=== PATIENT | male | born 1940 | race Caucasian/White ===

== ENCOUNTER 2018-06-10 08:27 | Day surgery (SDC) | payer MEDICARE, OTHER ==
[~2018-06-10 08:27] MED LIST: Lactated Ringers 1,000 ML IV SCH
[2018-06-10] MEDS ORDERED: Propofol 200 MG/20 ML SDV ONE ×3 (09:49→10:05)
[2018-06-10] MEDS ORDERED: fentaNYL 100 MCG/2 ML SDV ONE ×2 (09:49→09:59)
[2018-06-10 11:21] VITALS: BP 140/66
--- NOTE | 2018-06-10 13:45 | OR ---
PREOP DIAGNOSIS: History of colon cancer. POSTOP DIAGNOSIS: History of colon cancer. PROCEDURE PERFORMED: Colonoscopy. INDICATION: The patient is a 77-year-old male, who had a previous colonoscopy approximately 5 years ago, which was normal. History of colon cancer prior to that, presents for repeat colonoscopy at this time. PROCEDURE DETAILS: Procedure done in the endoscopy suite. Sedation was given per Anesthesia. He was placed in left lateral position. First, a rectal exam was done, and was normal. Scope was introduced into the rectum, slowly advanced to the rectum, sigmoid, descending, transverse, and ascending colon until the anastomosis with the terminal ileum was reached. The scope was then slowly withdrawn looking all mucosal surface on the way out. No mucosal abnormalities, lesions, or polyps were noted. FINAL DIAGNOSIS: Normal colonoscopy. BKD: 06/10/2018 11:46:08 MODL: 06/10/2018 13:42:40 /[id number]
== END 2018-06-10 11:45 | disposition home or self-care (01) ==
LOC: VM.SDS 08:27
PROVIDERS: ATTEND Surgery
DX: Z12.11 Encounter for screening for malignant neoplasm of colon (principal); I10 Essential (primary) hypertension; E78.00 Pure hypercholesterolemia, unspecified; Z88.8 Allergy status to other drugs, medicaments and biological substances; Z91.048 Other nonmedicinal substance allergy status; Z79.02 Long term (current) use of antithrombotics/antiplatelets; Z79.82 Long term (current) use of aspirin; Z79.84 Long term (current) use of oral hypoglycemic drugs; Z79.899 Other long term (current) drug therapy; Z85.038 Personal history of other malignant neoplasm of large intestine
CPT/HCPCS: 00811; J2704; J3010; J7120

== ENCOUNTER 2020-08-04 10:39 | Emergency (ER) | payer MEDICARE, OTHER ==
[2020-08-04] MEDS ORDERED: Sodium Chloride 0.9% 10 ML Syringe FLUSH PRN (11:16)
[2020-08-04] MEDS ORDERED: Albuterol HFA 18 Gm Inhaler INH STA (11:17)
[2020-08-04 11:48] LABS: CHLORIDE,CL 101 mmol/L (98-107); SODIUM,NA 138 mmol/L (136-145)
--- NOTE | 2020-08-04 11:49 | CR ---
[id number] RAD/RAD Chest PA or AP 1V EXAM: RAD Chest PA or AP 1V INDICATION: POSITIVE COVID, POSITIVE SHORTNESS OF BREATH. COMPARISON: October 31, 2019. DISCUSSION: Cardiomediastinal silhouette is normal in size and contour. Subtle opacity projects over the left lung base. If there are signs of infection, this could represent pneumonia including sequela of COVID 19. Right lung is clear. No pleural effusion or pneumothorax. IMPRESSION: As above. Nirav Hubbard MD 08/04/20 1148 Thank you for allowing us to participate in the care of your patient.
[2020-08-04 11:55] LABS: PTT,PARTIAL THROMBOPLSTIN TIME 26.7 SEC (25.6-32.8)
[2020-08-04] MEDS ORDERED: Dexamethasone 4 MG/ML 5 ML MDV IV ONE (12:53)
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
[2020-08-04] MEDS ORDERED: Dexamethasone 4 MG/ML SDV ONE (13:13)
[2020-08-04] MEDS ORDERED: Iopamidol 612 MG/ML 100 ML Bottle IVPUSH ONE (13:30)
--- NOTE | 2020-08-04 14:07 | CT ---
[id number] CT/CTA Chest EXAM: CT ANGIOGRAM CHEST INDICATION: POSITIVE COVID, POSITIVE D-DIMER. COMPARISON: October 31, 2019. DISCUSSION: Evaluation is mildly limited by motion artifact. The pulmonary arteries are normal in appearance with no emboli identified. Scattered groundglass opacities throughout the left lung are most consistent with infection including Covid 19. No pleural or pericardial effusion. Normal heart size. There is a mildly enlarged left hilar lymph node measuring about 23 x 15 mm which appear stable to mildly increased. Cholelithiasis. The imaged upper abdomen is otherwise unremarkable. Diffuse idiopathic skeletal hyperostosis. IMPRESSION: 1. Negative for pulmonary embolism. 2. Multifocal groundglass opacities in the left lung are nonspecific, but compatible the clinical history of Covid 19 infection. Davy Rodriguez MD 08/04/20 6400 Thank you for allowing us to participate in the care of your patient.
[2020-08-04 19:50] VITALS: BP 130/78; PULSE 82
== END 2020-08-04 14:30 | disposition home or self-care (01) ==
LOC: VM.ED 10:39
DX: U07.1 COVID-19 (principal); I10 Essential (primary) hypertension; E78.00 Pure hypercholesterolemia, unspecified; E11.9 Type 2 diabetes mellitus without complications; Z88.8 Allergy status to other drugs, medicaments and biological substances; Z79.82 Long term (current) use of aspirin; Z79.02 Long term (current) use of antithrombotics/antiplatelets; Z79.899 Other long term (current) drug therapy
CPT/HCPCS: 36415; 71045; 71275; 80053; 82728; 83605; 83735; 83880; 84484; 85025; 85379; 85610; 85730; 87040; 93005; 96374; 99285; A9270; J1100; Q9967; 99284

== ENCOUNTER 2023-01-25 09:51 | Emergency (ER) | payer MEDICARE, OTHER ==
[2023-01-25] MEDS ORDERED: Sodium Chloride 0.9% 10 ML Syringe FLUSH PRN (09:54)
[2023-01-25] MEDS ORDERED: Nitroglycerin 0.4 MG Tab.SL SL ONE (09:55)
[2023-01-25] MEDS ORDERED: Aspirin 81 MG Tab.Chew PO ONE (10:03)
[2023-01-25 10:04] LABS: BASOPHILS PERCENT AUTO 0.5 % (0.2-1.2); EOSINOPHILS ABSOLUTE AUTO 0.4 x10^3/uL (0.0-0.5); EOSINOPHILS PERCENT AUTO 7.3 % (0.0-4.0); HEMATOCRIT 29.2 % (40.0-52.0); HEMOGLOBIN 10.1 g/dL (14.0-18.0); LYMPHOCYTES ABSOLUTE AUTO 0.8 x10^3/uL (1.0-4.8); LYMPHOCYTES PERCENT AUTO 13.1 % (25.0-50.0); MEAN CORPUSCULAR HEMOGLOBIN 31.8 pg (26.0-32.0); MEAN CORPUSCULAR HGB CONC 34.6 g/dL (32.0-36.0); MEAN CORPUSCULAR VOLUME 91.8 fL (78.0-93.0); MONOCYTES ABSOLUTE AUTO 0.3 x10^3/uL (0.0-0.8); MONOCYTES PERCENT AUTO 5.3 % (2.0-11.0); NEUTROPHILS ABSOLUTE AUTO 4.3 x10^3/uL (1.8-7.7); NEUTROPHILS PERCENT AUTO 73.8 % (50.0-80.0); PLATELET COUNT,PLT 152 x10^3/uL (130-400); RED BLOOD CELL COUNT 3.18 x10^6/uL (4.5-6.0); WHITE BLOOD CELL COUNT,WBC 5.9 x10^3/uL (4.0-10.0)
[2023-01-25] MEDS ORDERED: Sodium Chloride 0.9% 1,000 ML IV ONE (10:04)
[2023-01-25 10:31] LABS: A/G RATIO 1.09; ALANINE AMINOTRANSFERASE,ALT 15 U/L (16-63); ALBUMIN 3.5 g/dL (3.4-5.0); ALKALINE PHOSPHATASE 105 U/L (46-116); ANION GAP 13.5 mmol/L (5-15); ASPARTATE AMNIOTRANSFERASE,AST 16 U/L (15-37); BILIRUBIN TOTAL 0.6 mg/dL (0.2-1.0); BLOOD UREA NITROGEN,BUN 32 mg/dL (7-18); CALCIUM 9.2 mg/dL (8.5-10.1); CARBON DIOXIDE,CO2 27 mmol/L (21-32); CHLORIDE,CL 102 mmol/L (98-107); CREATININE 1.7 mg/dL (0.70-1.30); ESTIMATED GFR 40 mL/min (>=60); GLUCOSE RANDOM 106 mg/dL (70-99); POTASSIUM,K 4.5 mmol/L (3.5-5.1); PROTEIN TOTAL,TP 6.7 g/dL (6.4-8.2); SODIUM,NA 138 mmol/L (136-145)
[2023-01-27 11:16] VITALS: BP 129/81; PULSE 60
== END 2023-01-25 12:16 | disposition home or self-care (01) ==
LOC: VM.ED 09:51
DX: I24.9 Acute ischemic heart disease, unspecified (principal); E78.00 Pure hypercholesterolemia, unspecified; I10 Essential (primary) hypertension; E11.9 Type 2 diabetes mellitus without complications; Z88.8 Allergy status to other drugs, medicaments and biological substances; Z79.82 Long term (current) use of aspirin; Z79.02 Long term (current) use of antithrombotics/antiplatelets; Z79.899 Other long term (current) drug therapy; Z79.84 Long term (current) use of oral hypoglycemic drugs
CPT/HCPCS: 71045; 80053; 83880; 84484; 85025; 93005; 93010; 96360; 96361; 99284; 99285; A9270; J7030